=== PATIENT | male | born 1965 | race Caucasian/White ===

== ENCOUNTER 2024-02-01 10:02 | Outpatient (CLI) | payer BC, SELFPAY | END 2024-02-01 10:03 | disposition home or self-care (01) | PROVIDERS: PCP Family Medicine; Visit Provider Family Medicine | DX: Z12.5 Encounter for screening for malignant neoplasm of prostate (principal); Z13.220 Encounter for screening for lipoid disorders | CPT/HCPCS: 80061; G0103 ==

== ENCOUNTER 2024-08-19 19:47 | Emergency (ER) | payer BC, SELFPAY ==
[2024-08-19 19:55] VITALS: BP 137/74; PULSE 104; RESP 20; TEMP 37.6; O2SAT 94; BMI 50.9
--- NOTE | 2024-08-19 20:20 | ED_ITS ---
HPI - General Adult General Chief complaint: Urogenital Problems, Male Stated complaint: UTI-on antibiotics, severe shaking Time Seen by Provider: 08/19/24 20:02 Source: patient Mode of arrival: ambulatory Limitations: no limitations History of Present Illness HPI narrative: 59-year-old male presenting today with concerns about recurrent UTI. Patient states that he was treated for UTI the beginning of the month with ciprofloxacin and his treatment ended approximately 10 days ago. The around 4 days ago he started developing increased urinary frequency. Today he developed chills. He has also been feeling some malaise and daily headaches which is how he felt when his infection 1st started. Normal appetite. No diarrhea. No chest or abdominal pain. No flank pain. No dysuria or blood in his urine. Patient took ?non aspirin?before arriving to the ER. Unclear what this is. Related Data Home Medications ?Medication ?Instructions ?Recorded ?Confirmed multivitamin (Multiple Vitamins 1 tab PO QDAY 01/29/23 01/29/23 tablet) omeprazole 20 mg tablet,delayed 20 mg PO QDAY 02/01/24 08/19/24 release metoprolol succinate 25 mg 25 mg PO DAILY 08/19/24 08/19/24 tablet,extended release 24 hr Previous Rx's ?Medication ?Instructions ?Recorded levofloxacin 750 mg tablet 750 mg PO DAILY #7 tabs 08/19/24 Allergies Allergy/AdvReac Type Severity Reaction Status Date / Time Penicillins Allergy Intermediate Rash Verified 02/01/24 09:18 Review of Systems Status of ROS: Reports: 10 or more systems reviewed and unremarkable except as noted in History and below PFSH PFSH Surgical History History of radiofrequency ablation (RFA) procedure for cardiac arrhythmia ?Z98.890 - Other specified postprocedural states (ICD-10) Status post gastric banding surgery ?Z98.84 - Bariatric surgery status (ICD-10) History of laparoscopic cholecystectomy ?Z90.49 - Acquired absence of other specified parts of digestive tract (ICD- 10) History of colonoscopy ?Z98.890 - Other specified postprocedural states (ICD-10) Family History Other Colon cancer Social History Smoking Status: Never smoker Exam Narrative: Exam Narrative: Obese, well-developed patient in no acute distress. Alert and oriented. Answers questions appropriately. Mood and affect are appropriate. Thoughts are goal oriented and rational. No tangential or magical thinking noted. Patient speaks in full sentences without needing to catch his breath. HEENT: Normocephalic atraumatic. Pupils are equally round reactive to light. Extraocular muscles are intact. Conjunctivae are moist without any icterus noted. Moist mucous membranes. Posterior pharynx is normal. Neck is soft. Cardiovascular: Heart is regular rate and rhythm S1 and S2 are present without any murmurs. Lungs: Clear to auscultation bilaterally no wheezes rhonchi or rales are appreciated. Patient takes deep breaths without any discomfort. Abdomen: Soft and nontender nondistended with normal bowel sounds. Extremities: Bilateral lower extremities are without pitting edema. Skin: Well perfused. Mildly diaphoretic. Const: Vital Signs, click to edit/add: Vital Signs - 24 hr 08/19/24 19:55 Temperature 99.7 F H Pulse Rate [Pulse Oximeter] 104 H Respiratory Rate 20 Blood Pressure [Ri t Upper Arm] 137/74 Pulse Oximetry 94 Oxygen Delivery Me thod Room Air Course Course ED Course: Blood work unremarkable aside from an elevated CRP. UA grossly positive for signs of infection. While here patient did receive 1 g of IV Rocephin. Vital Signs Vital signs: Initial Vital Signs Temperature 99.7 F H 08/19/24 19:55 Temperature Source Oral 08/19/24 19:55 Pulse Rate 104 H 08/19/24 19:55 Respiratory Rate 20 08/19/24 19:55 Blood Pressure 137/74 08/19/24 19:55 Blood Pressure Mean 95 08/19/24 19:55 Blood Pressure Position Sitting 08/19/24 19:55 Pulse Oximetry 94 08/19/24 19:55 Oxygen Delivery Method Room Air 08/19/24 19:55 Vital Signs Temperature 99.7 F H 08/19/24 19:55 Pulse Rate 104 H 08/19/24 19:55 Respiratory Rate 20 08/19/24 19:55 Blood Pressure 137/74 08/19/24 19:55 Pulse Oximetry 94 08/19/24 19:55 Oxygen Delivery Method Room Air 08/19/24 19:55 Temperature 99.7 F H 08/19/24 19:55 Pulse Rate 104 H 08/19/24 19:55 Respiratory Rate 20 08/19/24 19:55 Blood Pressure 137/74 08/19/24 19:55 Pulse Oximetry 94 08/19/24 19:55 Oxygen Delivery Method Room Air 08/19/24 19:55 Medical Decision Making MDM Narrative Medical decision making narrative: A 59-year-old male with UTI, concern for early pyelonephritis. Will treat with Levaquin 750 mg p.o. daily for 7 days. Lab Data Labs: Lab Results 08/19/24 08/19/24 Range/Units 20:37 Unknown WBC 9.12 (4.50-11.00) K/uL RBC 4.43 (4.30-5.90) m/uL Hgb 12.5 L (13.5-17.5) gm/dL Hct 38.6 (37.0-53.0) % MCV 87 (80-100) fL MCH 28 (26-34) pg MCHC 32 (32-36) gm/dL RDW Coeff of Artemio 14.3 (11.5-15.5) % Plt Count 251 (140-440) K/uL Neut % (Auto) 90.7 H (42.0-72.0) % Lymph % (Auto) 4.1 L (20-44) % [place] % (Auto) 4.9 (0.0-11.0) % Eos % (Auto) 0.0 (0.0-7.0) % Baso % (Auto) 0.2 (0.0-3.0) % Neut # (Auto) 8.30 H (1.7-7.0) K/uL Lymph # (Auto) 0.40 L (0.90-2.90) K/uL [place] # (Auto) 0.40 (0.00-0.90) K/UL Eos # (Auto) 0.00 (0.00-0.50) K/uL Baso # (Auto) 0.02 (0.00-0.30) K/uL Abs Immat Gran (auto) 0.01 (0.00-0.30) K/uL Imm/Tot Granulo (auto) 0.1 % Sodium 139 (135-149) mmol/L Potassium 3.5 L (3.6-5.1) mmol/L Chloride 108 (96-114) mmol/L Carbon Dioxide 21 (20-32) mmol/L Anion Gap 10 (7-15) mEq/L BUN 12 (7-30) mg/dL Creatinine 0.7 (0.5-1.5) mg/dL Estimated Creat Clear 124.01 Estimated GFR 107 ml/min Glucose 115 (60-115) mg/dL Lactate 1.2 (0.5-1.9) mmol/L Calcium 8.6 (8.4-10.6) mg/dL Total Bilirubin 1.0 (0.1-1.5) mg/dL Direct Bilirubin 0.3 (0.0-0.5) mg/dL AST 21 (12-35) U/L ALT 11 (4-50) U/L Alkaline Phosphatase 80 (40-150) U/L C-Reactive Protein 5.8 H (0.5-1.0) mg/dL Total Protein 7.3 (6.0-8.3) g/dL Albumin 4.2 (3.3-5.0) g/dL Urine Color Yellow (Yellow) Urine Appearance Cloudy A (Clear) Urine pH 5.5 (5.0-8.5) Ur Specific [place] 1.020 (1.000-1.030) Urine Protein 2+ A (Negative) Urine Glucose (UA) Negative (Negative) Urine Ketones Trace A (Negative) Urine Blood 3+ A (Negative) Urine Nitrite Positive A (Negative) Urine Bilirubin Negative (Negative) Urine Urobilinogen 1.0 (0.2-1.0) Ur Leukocyte Esterase 1+ A (Negative) Urine RBC 2-5 A (0-2) Urine WBC 5-10 A (0-5) Ur Squamous Epith Cells None (None-Few) Urine Bacteria Moderate A (None) SARS-CoV-2 (PCR) Negative SARS-CoV-2 (Negative) Influenza Type A (PCR) Negative PCR FLU A (Negative) Influenza Type B (PCR) Negative PCR FLU B (Negative) Discharge Plan Discharge Clinical Impression: Urinary tract infection Patient Disposition: Home, Self-Care Condition: Stable Additional Instructions: Take all antibiotics as prescribed. Can take 1st dose tomorrow. If you are not noticing any improvement over the next 48 hours you should return for re- evaluation. Follow-up with your primary care provider as scheduled. Prescriptions: New levofloxacin 750 mg tablet 750 mg PO DAILY Qty: 7 0RF No Action multivitamin [Multiple Vitamins] Tablet 1 tab PO QDAY omeprazole 20 mg tablet,delayed release (DR/EC) 20 mg PO QDAY metoprolol succinate 25 mg tablet extended release 24 hr 25 mg PO DAILY Follow Up/Referrals: Fareed Donohue MD [Primary Care Provider] - Stand Alone Forms: [employer] Info Instructions
[2024-08-19 20:42] LABS: Lactate* 1.2 mmol/L (0.5-1.9)
[2024-08-19 20:48] LABS: Basophils Absolute Auto 0.02 K/uL (0.00-0.30); Basophils Percent Auto 0.2 % (0.0-3.0); Hematocrit 38.6 % (37.0-53.0); Hemoglobin* 12.5 gm/dL (13.5-17.5); Immature Granulocytes Abs Auto 0.01 K/uL (0.00-0.30); Immature Granulocytes Pct Auto 0.1 %; Lymphocytes Percent Auto 4.1 % (20-44); Mean Corpuscular HGB Conc 32 gm/dL (32-36); Mean Corpuscular Hemoglobin 28 pg (26-34); Mean Corpuscular Volume 87 fL (80-100); Monocytes Percent Auto 4.9 % (0.0-11.0); Neutrophils Percent Auto 90.7 % (42.0-72.0); Platelet Count* 251 K/uL (140-440); RDW Coefficient of Variation % 14.3 % (11.5-15.5); Red Blood Count 4.43 m/uL (4.30-5.90); White Blood Count* 9.12 K/uL (4.50-11.00)
[2024-08-19 20:49] LABS: Appearance Urine Cloudy (Clear); Bilirubin Urine Negative (Negative); Blood Urine 3+ (Negative); Color Urine Yellow (Yellow); Glucose Urine Negative (Negative); Ketones Urine Trace (Negative); Leukocyte Esterase Urine 1+ (Negative); Nitrite Urine Positive (Negative); Protein Urine 2+ (Negative); pH Urine 5.5 (5.0-8.5)
[2024-08-19 20:56] LABS: Slide Review Reflex No
[2024-08-19 21:00] LABS: Albumin* 4.2 g/dL (3.3-5.0); Chloride* 108 mmol/L (96-114)
[2024-08-19 21:01] LABS: Potassium* 3.5 mmol/L (3.6-5.1); Sodium* 139 mmol/L (135-149)
[2024-08-19 21:03] LABS: Anion Gap 10 mEq/L (7-15); Bilirubin Direct* 0.3 mg/dL (0.0-0.5); Carbon Dioxide* 21 mmol/L (20-32); Creatinine* 0.7 mg/dL (0.5-1.5); Est. Creatinine Clearance* 124.01; Estimated Glomerular Filt Rate 107 ml/min; Total Protein* 7.3 g/dL (6.0-8.3)
[2024-08-19 21:04] LABS: Alanine Aminotransferase* 11 U/L (4-50); Alkaline Phosphatase* 80 U/L (40-150); Aspartate Amino Transferase* 21 U/L (12-35); Blood Urea Nitrogen* 12 mg/dL (7-30); Calcium* 8.6 mg/dL (8.4-10.6); Glucose* 115 mg/dL (60-115)
[2024-08-19 21:06] LABS: C Reactive Protein* 5.8 mg/dL (0.5-1.0)
[2024-08-19 21:23] LABS: PCR FLU A Negative PCR FLU A (Negative); PCR FLU B Negative PCR FLU B (Negative); SARS PCR* Negative SARS-CoV-2 (Negative)
[2024-08-19 21:28] LABS: Bacteria Urine Moderate
[2024-08-19] MEDS: cefTRIAXone 1 GM in 0.9 % SODIUM CHLORIDE Mini-bag 100 ML IVPB (21:57)
== END 2024-08-19 22:11 | disposition home or self-care (01) ==
PROVIDERS: Emergency Provider Family Medicine; PCP Family Medicine
DX: N39.0 Urinary tract infection, site not specified (principal)
CPT/HCPCS: 36415; 80048; 80076; 81001; 83605; 85025; 86140; 87086; 87186; 87631; 96374; 99284; J0696

== ENCOUNTER 2024-09-15 11:20 | Outpatient (CLI) | payer BC, SELFPAY | END 2024-09-15 11:21 | disposition home or self-care (01) | LOC: NFLDREF 09-16 18:56 | PROVIDERS: PCP Family Medicine; Referring Provider Family Medicine; Visit Provider Family Medicine | DX: N41.9 Inflammatory disease of prostate, unspecified (principal) | CPT/HCPCS: 87086 ==

== ENCOUNTER 2024-10-06 07:15 | Outpatient (CLI) | payer BC, SELFPAY ==
--- NOTE | 2024-10-06 08:40 | P.ANES_ITS ---
Anesthesia Charges Start Date/Time Anesthesia Start Date: 10/06/24 Anesthesia Start Time: 08:02 Stop Date/Time Anesthesia Stop Date: 10/06/24 Anesthesia Stop Time: 08:34 Coding CPT Codes CPT Codes: ANES LWR INTST NDSC NOS - 82537 ([id number]) P3 - PATIENT W/SEVERE SYS DISEASE, QK - CAUL PULLER 2-4 CNCRNT ANES PROC, QX - TUNNEL MINER SVC W/ MD MED DIRECTION
--- NOTE | 2024-10-06 08:40 | W.ANESCHARGE ---
Anesthesia Charges Start Date/Time Anesthesia Start Date: 10/06/24 Anesthesia Start Time: 08:02 Stop Date/Time Anesthesia Stop Date: 10/06/24 Anesthesia Stop Time: 08:34 Coding CPT Codes CPT Codes: ANES LWR INTST NDSC NOS - 07061 ([id number]) P3 - PATIENT W/SEVERE SYS DISEASE, QK - AUTO CLUTCH REBUILDER 2-4 CNCRNT ANES PROC, QX - ART GILDER SVC W/ MD MED DIRECTION
--- NOTE | 2024-10-06 08:56 | P.ANES_ITS ---
Anesthesia Charges Start Date/Time Anesthesia Start Date: 10/06/24 Anesthesia Start Time: 08:02 Stop Date/Time Anesthesia Stop Date: 10/06/24 Anesthesia Stop Time: 08:34 Coding CPT Codes CPT Codes: FANTASMA LWR INTST NDSC NOS - [id number] ([id number]) QK - FOOD CART ATTENDANT 2-4 CNCRNT FANTASMA PROC, QX - CULTURE MANAGER SVC W/ MD MED DIRECTION, P2 - PATIENT W/MILD SYST DISEASE
--- NOTE | 2024-10-06 08:56 | W.ANESCHARGE ---
Anesthesia Charges Start Date/Time Anesthesia Start Date: 10/06/24 Anesthesia Start Time: 08:02 Stop Date/Time Anesthesia Stop Date: 10/06/24 Anesthesia Stop Time: 08:34 Coding CPT Codes CPT Codes: FANTASMA LWR INTST NDSC NOS - 60812 ([id number]) QK - PROGRAM SPECIALIST 2-4 CNCRNT FANTASMA PROC, QX - ENTERPRISE ANALYST SVC W/ MD MED DIRECTION, P2 - PATIENT W/MILD SYST DISEASE
== END 2024-10-06 07:16 | disposition home or self-care (01) ==
LOC: OP CLINIC 07:17
PROVIDERS: PCP Family Medicine; Visit Provider Surgery
DX: Z12.11 Encounter for screening for malignant neoplasm of colon (principal); D12.4 Benign neoplasm of descending colon; K57.30 Diverticulosis of large intestine without perforation or abscess without bleeding; Z86.0100 Personal history of colon polyps, unspecified; Z80.0 Family history of malignant neoplasm of digestive organs
CPT/HCPCS: 00811; 45385; 88305; J2704

== ENCOUNTER 2024-10-08 08:42 | Outpatient (CLI) | payer BC, SELFPAY | END 2024-10-08 08:43 | disposition home or self-care (01) | LOC: NFLDREF 10-20 08:31 | PROVIDERS: PCP Family Medicine; Referring Provider Family Medicine; Visit Provider Family Medicine | DX: R30.0 Dysuria (principal) | CPT/HCPCS: 87086 ==